=== PATIENT | male | born 1975 | race Caucasian/White ===

== ENCOUNTER 2018-12-31 09:51 | Day surgery (SDC) | payer BC ==
[~2018-12-31 09:51] MED LIST: LIDOCAINE HCL 1% MPF 30 SOL ONE; PROPOFOL 500 MG/50 ML EMU IV ONE
[2018-12-31 10:33] VITALS: RESP 16
[2018-12-31 11:43] VITALS: O2SAT 98
[2018-12-31 12:07] VITALS: BP 134/89; PULSE 66; TEMP 97.7
== END 2018-12-31 12:14 | disposition home or self-care (01) ==
LOC: SURG 09:51
PROVIDERS: ATTEND Surgery
DX: K62.5 Hemorrhage of anus and rectum (principal)
CPT/HCPCS: J2001; J2704